=== PATIENT | female | born 1980 | race Caucasian/White ===

== ENCOUNTER 2017-10-11 07:03 | Emergency (ER) | payer MEDICAID, SELFPAY ==
[2017-10-11 07:04] VITALS: BP 75/48; PULSE 82; RESP 16; TEMP 36.4; O2SAT 100; BMI 19.8
[2017-10-11 07:11] LABS: Mucous, Urine 0 SEEN /hpf (<or=2+)
--- NOTE | 2017-10-11 07:20 | ED.DCSUM_ITS ---
- ER Visit Summary Date of Service: 10/11/17 Chief Complaint: Dysuria History of Present Illness: The patient is a 37 F who states that for the past 5 days she has had a progressive suprapubic pain radiating into her bilateral back. She describes it as a continuous ache. She notes a dark strong urine. She notes dysuria and urinary frequency. She notes subjective fever chills and sweats. Patient states that her blood pressures typically low. Physical Examination: Afebrile vital signs are stable Gen: Well-nourished well-developed Head: Normocephalic atraumatic Eyes: Perrl EOMI ENT: TMs clear no rhinorrhea moist mucous membranes Neck: Supple no lymphadenopathy no JVD nontender CVS: Regular rate rhythm no murmurs normal S1-S2 Respiratory: No distress clear to auscultation bilaterally chest nontender Abdomen: Soft mild suprapubic tenderness to palpation without guarding or rebound nondistended normal bowel sounds no masses Back: Bilateral CVA tenderness Extremity: Nontender no edema Skin: Normal color no rash Neuro: alert orientated ?3 CN II-XII intact normal strength sensation reflexes gait cerebellar Psych: Flat affect normal mood Test Results: test is negative. Urinalysis is positive for nitrates and leukocyte esterase and microscopic is positive for 25-50 white cells 25-50 red cells and 2+ bacteria. Emergency Department Course and Treatment: Urine culture was ordered. Patient will be discharged home on Bactrim and Pyridium. Impression: 1. UTI This note was generated with [email or web address] dictation software. It may contain incorrect words, spelling, and punctuation that were not noted in review of the chart prior to signing ED Disposition - Plan for ED Patient: Chief Complaint: Complaint Instructions: ED Kidney Infec Female Prescriptions: Smz/Tmp Ds [Bactrim Ds] 1 tab PO BID #28 tab Phenazopyridine HCl [Pyridium] 200 mg PO TID #10 tab Referrals: [facility],Out of [Primary Care Provider] - 1 Week if not improving
[2017-10-11 07:43] LABS: Internal QC Validated? YES +Cl - CLEAR BKGD; Pregnancy, Urine Negative Negative
[2017-10-11 08:09] LABS: Color, Urine Yellow (Yellow); Glucose, Dipstick Normal (Normal); Ketone-Dipstick 5 mg/dl (Negative); Leukocyte Esterase-Dipstick 500 /ul (Negative); Nitrite-Dipstick Positive (Negative); Occult Blood-Urine 250 /ul (Negative); Protein-Dipstick 100 mg/dl (Negative); Urine Bilirubin Dipstick 1 mg/dL (Negative); Urine Clarity Sl. Cloudy (Clear); Urine Urobilinogen 4 mg/dl (Normal)
[2017-10-11 08:10] LABS: Squamous Epithelial Cells - UA 0-5 SEEN /hpf (5-10)
[2017-10-11 08:11] LABS: Bacteria 2+ /hpf (None Seen); Red Blood Cells-Urine 25-50 SEEN /hpf (0-5); White Blood Cells 25-50 SEEN /hpf (0-5)
[2017-10-11 08:26] VITALS: RESP 12
== END 2017-10-11 08:37 | disposition home or self-care (01) ==
PROVIDERS: Emergency Provider Emergency Medicine
DX: N12 Tubulo-interstitial nephritis, not specified as acute or chronic (principal); G62.9 Polyneuropathy, unspecified; M54.9 Dorsalgia, unspecified; G89.29 Other chronic pain; Z79.899 Other long term (current) drug therapy
CPT/HCPCS: 81001; 81025; 87086; 87088; 87186; 99282